=== PATIENT | male | born 1945 | race Caucasian/White ===

== ENCOUNTER → 2024-10-01 | Outpatient (CLI) | payer MEDICARE | END | disposition home or self-care (01) | LOC: RESCLI 12:58 | PROVIDERS: ATTEND Student in an Organized Health Care Education/Training Program | DX: F51.01 Primary insomnia (principal); M43.6 Torticollis; I48.0 Paroxysmal atrial fibrillation; R42 Dizziness and giddiness; G89.4 Chronic pain syndrome; F41.1 Generalized anxiety disorder; K21.9 Gastro-esophageal reflux disease without esophagitis; J44.9 Chronic obstructive pulmonary disease, unspecified; Z79.899 Other long term (current) drug therapy ==